=== PATIENT | female | born 1945 | race Caucasian/White ===

== ENCOUNTER 2017-08-15 07:41 | Inpatient (IN) ==
[2017-08-09 15:00] LABS: Basophils # (Auto) 0 K/mcL (0.0-0.3); Basophils % (Auto) 0.4 % (0.0-2.0); Eosinophils # (Auto) 0.1 K/mcL (0.0-0.7); Eosinophils % (Auto) 1.4 % (0.0-7.0); Granulocytes % (Auto) 65.3 % (38.0-78.0); Lymphocytes # (Auto) 2.1 K/mcL (1.5-4.8); Lymphocytes % (Auto) 25.7 % (15.5-49.0); Mean Corpuscular HGB Conc 33.1 g/dL (31.0-36.0); Mean Corpuscular Hemoglobin 29.1 pg (26.0-34.0); Monocytes # (Auto) 0.6 K/mcL (0.1-0.9); Monocytes % (Auto) 7.2 % (1.0-12.0); Platelet Count 251 K/mcL (140-440); RBC 4.94 M/mcL (4.00-5.20); Red Cell Distribution Width 14.3 % (11.5-14.5)
[2017-08-09 15:30] LABS: Blood Urea Nitrogen 13 mg/dl (8-23)
[2017-08-09 16:27] LABS: Appearance,Urine CLEAR; Bacteria,Urine 0 /hpf (0); Bilirubin,Urine NEG (NEG); Color,Urine YELLOW; Glucose,Urine (UA) NORM (NEG); Leukocyte Esterase,Urine TRACE /uL (NEG); Mucus,Urine FEW /hpf (0); Nitrate,Urine NEG (NEG); Protein,Urine NEG (NEG); Specific Gravity,Urine 1.022 (1.000-1.035); Urine Blood NEG mg/dL (<0.03); Urine RBC 0 /hpf (0-1); Urine Squamous Epithelial Cell 1 /hpf (0-4); Urine WBC < 1 /hpf (0-4); Urobilinogen,Urine NEG (NEG)
[~2017-08-15 07:41] MED LIST: CELECOXIB 200 MG CAPSULE PO SCH; PREGABALIN 75 MG CAPSULE PO SCH; ceFAZolin 1 GM VIAL IV SCH; oxyCODONE 10 MG TAB.ER.12H PO SCH
[2017-08-15] MEDS ORDERED: ONDANSETRON 4 MG/2 ML VIAL IV ONE (11:40)
[2017-08-15] MEDS ORDERED: ePHEDrine 50 MG/ML AMPUL IV ONE (11:40)
[2017-08-15] MEDS ORDERED: TRANEXAMIC ACID 1,000 MG/10 ML VIAL IV ONE ×2 (11:40→13:18)
[2017-08-15] MEDS ORDERED: DEXAMETHASONE 10 MG/ML VIAL IV ONE (11:40)
[2017-08-15] MEDS ORDERED: PROPOFOL 200 MG/20 ML VIAL IV ONE (11:40)
[2017-08-15] MEDS ORDERED: LIDOCAINE HCL/PF 100 MG/5 ML SYRINGE IV ONE (11:40)
[2017-08-15] MEDS ORDERED: ROPIVACAINE HCL/PF 30 ML VIAL IJ ONE (11:40)
[2017-08-15] MEDS ORDERED: fentaNYL 250 MCG/5 ML VIAL IV ONE (11:40)
[2017-08-15] MEDS ORDERED: SUCCINYLCHOLINE 20 MG/ML ML IV ONE (11:40)
[2017-08-15] MEDS ORDERED: MIDAZOLAM 5 MG/5 ML VIAL IV ONE (11:40)
[2017-08-15] MEDS ORDERED: ACETAMINOPHEN 1,000 MG/100 ML BOTTLE IV ONE (13:16)
[2017-08-15] MEDS ORDERED: HYDROmorphone 2 MG/ML SYRINGE IV PRN (13:16)
[2017-08-15] MEDS ORDERED: diphenhydrAMINE 50 MG/ML VIAL IV PRN (13:16)
[2017-08-15] MEDS ORDERED: fentaNYL 100 MCG/2 ML VIAL IV PRN (13:16)
[2017-08-15] MEDS ORDERED: NALOXONE HCL 0.4 MG/ML VIAL IV PRN (13:16)
[2017-08-15] MEDS ORDERED: METHOCARBAMOL 1,000 MG/10 ML VIAL IV PRN (13:16)
[2017-08-15] MEDS ORDERED: BENZOCAINE/MENTHOL 1 LOZENGE PO PRN ×2 (13:16→13:18)
[2017-08-15] MEDS ORDERED: ONDANSETRON 4 MG/2 ML VIAL IV PRN ×2 (13:16→13:18)
[2017-08-15] MEDS ORDERED: LACTATED RINGERS 250 ML IV PRN (13:16)
[2017-08-15] MEDS ORDERED: FLUMAZENIL 0.1 MG/ML ML IV PRN (13:16)
[2017-08-15] MEDS ORDERED: MEPERIDINE 25 MG/ML SYRINGE IV PRN (13:16)
[2017-08-15] MEDS ORDERED: IPRATROPIUM/ALBUTEROL 3 ML AMPUL.NEB NEB PRN (13:16)
--- NOTE | 2017-08-15 13:17 | Brief Operative Note ---
Date of procedure: 08/15/17 Pre-op diagnosis: Left shoulder severe DJD Post-op diagnosis: same Procedure: Left total shoulder arthroplasty Biceps tenodesis Grafts/Implants: Yes (Depuy CAP 40 x 15, 40 anchor peg) Anesthesia: GETA Complications: none Surgeon: Jared Hollis [employer] Instructor: Eddy Walters Estimated blood loss (cc): 100 Specimens Removed/Pathology: none sent Condition: stable Disposition: PACU
[2017-08-15] MEDS ORDERED: KETOROLAC 30 MG/ML VIAL IV PRN (13:18)
[2017-08-15] MEDS ORDERED: FLEETS ADULT ENEMA PR PRN (13:18)
[2017-08-15] MEDS ORDERED: BISACODYL 10 MG SUPP.RECT PR PRN (13:18)
[2017-08-15] MEDS ORDERED: MAGNESIUM HYDROXIDE 30 ML ORAL.SUSP PO PRN (13:18)
[2017-08-15] MEDS ORDERED: POLYETHYLENE GLYCOL 3350 17 GM PACKET PO PRN (13:18)
[2017-08-15] MEDS ORDERED: LACTATED RINGERS 1,000 ML IV SCH (13:30)
[2017-08-15] MEDS: 0.9 % SODIUM CHLORIDE 1,000 ML IV SCH (14:04)
--- NOTE | 2017-08-15 14:34 | Operative Note ---
DATE OF OPERATION: 08/15/2017 PREOPERATIVE DIAGNOSIS: Left shoulder severe osteoarthritis. POSTOPERATIVE DIAGNOSIS: Left shoulder severe osteoarthritis. PROCEDURE PERFORMED: 1. Left total shoulder arthroplasty. 2. Left biceps tenodesis. SURGEON: Jared Hollis MD. IRS AGENT: Alan Walters PA-C. ANESTHESIA: General. DRAINS: None. SPECIMENS: None. COMPLICATIONS: None. BLOOD LOSS: 150 mL. POSTOPERATIVE CONDITION: Stable. INDICATIONS FOR SURGERY: This is a 72-year-old female who has had progressive worsening left shoulder pain. Radiographs showing [id number] arthrosis with large osteophytes. FINDINGS AT SURGERY: As above. Post implantation showed good component position and stability. PROCEDURE IN DETAIL: The patient had been seen preoperatively. Informed consent had been obtained after discussion of risks and benefits of surgery. Risks including, but not limited to, bleeding; infection, possibly requiring implant removal and prolonged IV antibiotics; injury to nerves, blood vessels, and other surrounding structures; anesthetic risks; incomplete or no resolution of symptoms; dislocation; pain; and stiffness. She understood these risks and wished to proceed. Correct operative site was marked and then patient was taken to the operating room and general anesthesia induced. She was carefully positioned in the beach chair position and pressure points carefully padded. The left shoulder and upper extremity were then carefully prepped and draped in normal sterile fashion, and a time-out was performed verifying patient name, operative site, and plan. All skin surfaces had been covered with Ioban and then a standard deltopectoral incision was made with a scalpel through skin and subcutaneous tissue. Hemostasis was obtained with Bovie cautery. Blunt dissection was taken down onto the deltopectoral interval and the cephalic vein identified. We irrigated with some Irrisept and then bluntly dissected medial to the cephalic vein, and then blunt finger dissection was used to develop the subdeltoid space. Epps deltoid retractor was placed and then a blue handle retractor was placed underneath the conjoined tendon. The biceps tendon was palpated, and we unroofed this up to its insertion and then amputated off the glenoid. A large osteotome that was curved was used to perform a lesser tuberosity osteotomy, and a traction stitch was placed around it. We then dislocated the humeral head out anteriorly and released capsule around the inferior neck. The osteophytes were removed with a curved osteotome and rongeur, and then we subluxed the humeral head posteriorly and proceeded to expose the glenoid. Labrum, what remained, was excised circumferentially, as well as the residual biceps stump. We then placed the guide pin centrally in the glenoid and then reamed with a 40 reamer. We then reamed for the central peg and then removed our guide pin and placed the peripheral peg drill guide and drilled our three peripheral pegs. We removed this and a 40 mm [place] Peg Glenoid was opened. DBX bone putty was placed in the flute of the central peg, and we irrigated Irrisept in the joint while cement was mixed. We then pulse lavaged after a minute with saline and then suctioned and placed cement in the three peripheral peg holes and compressed this manually. We then impacted our [place] Peg Glenoid. Once this was fully seated, we held this perfectly still until cement had fully hardened. We then re-exposed our humeral head. A size 40 guide was placed and we reamed with the cap reamer. We then removed excess bone from the periphery with an osteotome. We checked with the trial, and it seated completely, so we then used the cruciate punch. A 40 x 15 CAP humeral component was opened. We irrigated with Irrisept. After a minute we pulse lavaged and then impacted the CAP component. Shoulder was reduced. We checked and it did sublux 50%. We irrigated with Irrisept again, and after a minute pulse lavaged. We then placed drill holes in the bicipital groove. A #2 FiberWire was used in a [id number] around the lesser tuberosity osteotomized fragment. We also placed some more [id number] in the rotator interval. We then used our traction suture and a free needle to pass through our biceps tendon to tenodese it and then tied these. We then cut the proximal portion and excised it. Another Irrisept irrigation was done, and then a #1 Vicryl running stitch was used for the deltopectoral interval closure. Final Irrisept irrigation was done and then after a minute pulse lavage, and then 2-0 Monocryl was used for subcutaneous and cornelia for skin. Xeroform and sterile dressing were applied. Arm was placed in an abductor immobilizer, and patient was awakened, extubated, and transferred to recovery in stable condition. TENNILLE:leisa Job ID: [id number] Doc ID: [id number] Jared Hollis MD
--- NOTE | 2017-08-15 14:57 | XRay Report ---
HISTORY: Reason for Exam:Post-Op Total Shoulder FINDINGS: There is a well-positioned left total shoulder prosthesis. On the axillary view there is a suggestion of a fracture along the anterior border of the neck of the humerus in the general location of the tuberosities. This cannot be confirmed on the other two images. No other fracture is present. IMPRESSION: Possible fracture through a tuberosity Interpreted and Authenticated by: Damon Wills 08/15/17
[2017-08-15] MEDS: 0.9 % SODIUM CHLORIDE 10 ML SYRINGE IV SCH ×2 (14:58→23:55)
--- NOTE | 2017-08-15 16:31 | Discharge Summary ---
Providers - Providers Patient information: Note initiated : 08/15/17 at 4:29 pm Service Date, if different from initiated Date: [] Patient: Emiliana Evans 72 y/o F admitted on 08/15/17 for Left Total Shoulder Arthroplasty. Chief Complaint: [] Discharge date: 08/16/17 Hospitalization Hospital course: Pt was admitted for a Left total shoulder arthroplasty. She was admitted on day of procedure. After the procedure she was transferred to the floor for IV pain meds, IV abx, and PT. She spent one night on the floor prior to discharge. She was discharged with appropriate pain meds and out-patient PT orders. Will f/u at [facility] in 10-14 days. Discharge diagnosis: L shoulder osetoarthrosis Exam - Exam Clean and dry: Yes Weight bearing status: none Ortho Discharge - TSA - Patient Instructions Diet: Regular Diet Activity: non weight bearing Total Shoulder Protocol: Leave immobilizer in place except for bathing and ROM. Abduction pillow. Continue to wear sling until seen by physician. Codman Pendulum : These exercises use momentum produced by your body to move your shoulder joint. Bend your knees and shift your weight to your front leg, then back, allowing your arm to swing in the same directions. Using the same technique, alternately shift your weight between your right and left legs, allowing your arm to swing from side to side. These exercises are also performed in counterclockwise and clockwise circular motions. Typically these exercises are performed several times per day, for a set number repetitions or minutes, such as 20 times in a row or 5 minutes at a time. Dressing Care: May shower in 2 days Patient Education: Hydrocodone/Acetaminophen (By mouth), Shoulder Arthroplasty (DC) Additional Instructions: Discharge Instructions: Do the exercises at home that physical therapy gave you. You are scheduled to start physical therapy at [facility] ([phone]) on Aug. Take your prescription, photo ID, insurance cards, and current medication list with you to your first physical therapy appointment. 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 No weight bearing with left arm/hand. Keep your arm in the immobilizer except for showering and exercises. You have the Aquacel Ag dressing, leave in place for 7 days then remove. If dressing becomes soiled (turns black), remove and use gauze 4x4 dressing and silvasorb ointment and change daily. Keep incision clean and dry. You may start showering on post op day #2. To avoid constipation while taking any narcotic pain medication, take an over the counter stool softener/laxative. Use ice packs as directed, on for 20 minutes at a time throughout the day. This and elevation will help with pain and swelling. Call your physician for fevers above 100.5 or pain not controlled by medication. Your prescriptions are with your discharge information. Some medications were electronically transmitted to your pharmacy of choice. - Follow Up Plan Follow Up Appointments: Jared Hollis MD [Physician] - 08/30/17 10:00 am Disposition: Home, Self-Care Prognosis: Good Rehab Potential: Good Overall status at discharge: patient is progressing back to baseline - Orders For Discharge Prescriptions: HYDROcodone/ACETAMINOPHEN [[place] 10-325 Tablet] 1 - 2 each PO Q4-6HP PRN #80 tab PRN Reason: Pain Additional Discharge Orders: Physical Therapy at Discharge - TSA Location: Determined By Patient Pending Studies Resuscitation Status Full Code Diet Regular Diet Start SunAug 15 Dinner Sodium Chloride (Sodium Chloride 0.9%) 1,000 mls @ 100 mls/hr IV .Q10H ASHWINI Last Admin: 08/15/17 14:04 Dose: 100 mls/hr Ketorolac Tromethamine (Toradol) 30 mg IV Q6HP PRN PRN Reason: Pain Stop: 08/17/17 13:24 Last Admin: 08/15/17 14:55 Dose: 30 mg Ondansetron HCl (Zofran) 4 mg IV Q4HP PRN PRN Reason: Nausea And Vomiting Last Admin: 08/15/17 16:04 Dose: 4 mg Sodium Chloride (Saline Flush) 10 ml IV Q8 ASHWINI Last Admin: 08/15/17 14:58 Dose: Not Given
[2017-08-15] MEDS: DOCUSATE SODIUM 100 MG CAPSULE PO SCH (20:42)
[2017-08-15] MEDS: ceFAZolin 1 GM VIAL IV SCH (20:43)
[2017-08-15] MEDS ORDERED: SIMVASTATIN 20 MG TABLET PO SCH (21:00)
[2017-08-15] MEDS ORDERED: SENNOSIDES 1 TABLET PO SCH (21:00)
[2017-08-15] MEDS ORDERED: TRAVOPROST OPHTH DROPS BOTTLE 2.5ML OU SCH (21:00)
[2017-08-16] MEDS: 0.9 % SODIUM CHLORIDE 1,000 ML IV SCH ×3 (00:14→09:14)
[2017-08-16] MEDS: ceFAZolin 1 GM VIAL IV SCH (03:45)
[2017-08-16] MEDS: oxyCODONE/APAP 5/325MG TABLET PO PRN ×2 (05:17→09:48)
[2017-08-16] MEDS: 0.9 % SODIUM CHLORIDE 10 ML SYRINGE IV SCH (06:44)
[2017-08-16] MEDS ORDERED: LEVOTHYROXINE 75 MCG TABLET PO SCH (07:30)
--- NOTE | 2017-08-16 08:30 | Orthopedic Progress Note ---
Orthopedics - Auxillary Note - Subjective Patient Information: Note initiated : 08/16/17 at 8:28 am Service Date, if different from initiated Date: [] Patient: Emiliana Evans 72 y/o F admitted on 08/15/17 for Left Total Shoulder Arthroplasty. Chief Complaint: No c/o. Doing well. bandages c/d/i NVI-distal Vital Signs Temp Pulse Pulse Pulse Resp BP Pulse Ox 08/16/17 08:08 98.1 F 65 16 122/75 92 08/16/17 08:04 63 93 08/16/17 03:48 97.6 F 76 12 121/70 95 08/16/17 00:00 97.4 F 72 12 120/70 94 08/15/17 20:00 97.3 F 88 12 143/82 94 08/15/17 17:15 59 L 133/81 99 08/15/17 16:15 133/79 99 08/15/17 15:45 122/72 98 08/15/17 15:15 51 L 133/79 100 08/15/17 15:00 50 L 148/82 96 08/15/17 14:45 52 L 12 148/84 96 08/15/17 14:30 95.8 F L 54 L 12 151/86 95 08/15/17 14:24 96.9 F L 67 16 121/70 93 08/15/17 14:03 59 L 12 132/79 96 08/15/17 13:56 58 L 10 L 137/82 97 08/15/17 13:51 55 L 8 L 138/75 96 08/15/17 13:45 55 L 10 L 141/71 96 08/15/17 13:40 56 L 10 L 152/76 96 08/15/17 13:36 96.3 F L 55 L 10 L 136/79 97 Intake and Output 08/15/17 08/16/17 08/16/17 21:59 05:59 13:59 Intake Total 340 / 340 1453 / 1453 Output Total 650 / 650 650 / 650 600 / 600 Balance -310 / -310 803 / 803 -600 / -600 Intake: IV 100 / 100 1003 / 1003 Sodium Chloride 0.9% 1,000 ml @ 1003 / 1003 100 mls/hr IV .Q10H [facility] Rx#: [id number] Oral 240 / 240 450 / 450 Output: Void Amount 650 / 650 650 / 650 600 / 600 Other: Meal Dinner Percent of Meal Consumed 100% Feeding Ability Independent Weight 213 lb 8 oz Laboratory Results - last 24 hr 08/16/17 06:10 Hgb 13.0 Hct 38.9 s/p L total shoulder arthroplasty-stable mobilize with PT Discharge to home today
[2017-08-16] MEDS ORDERED: NEBIVOLOL HCL 10 MG PO SCH (09:00)
[2017-08-16] MEDS ORDERED: amLODIPine 5 MG TABLET PO SCH (09:00)
[2017-08-16] MEDS ORDERED: OLMESARTAN MEDOXOMIL 20 MG TABLET PO SCH (09:00)
[2017-08-16] MEDS: DOCUSATE SODIUM 100 MG CAPSULE PO SCH (09:13)
== END 2017-08-16 09:55 | disposition home or self-care (01) | DRG 483 ==
LOC: MEDSUR 07:41
PROVIDERS: ADMIT Orthopaedic Surgery; ATTEND Orthopaedic Surgery